=== PATIENT | male | born 1960 | race Two or more races ===

== ENCOUNTER 2023-03-18 07:08 | Outpatient (CLI) | payer OTHER | END 2023-03-18 07:11 | disposition home or self-care (01) | LOC: NUCLEAR 07:08 | PROVIDERS: ATTEND Urology | DX: I25.111 Atherosclerotic heart disease of native coronary artery with angina pectoris with documented spasm (principal) ==

== ENCOUNTER 2023-03-24 10:09 | Outpatient (CLI) | payer OTHER | END 2023-03-24 10:10 | disposition home or self-care (01) | LOC: NUCLEAR 10:09 | PROVIDERS: ATTEND Urology | DX: I65.1 Occlusion and stenosis of basilar artery (principal); I65.29 Occlusion and stenosis of unspecified carotid artery ==

== ENCOUNTER 2023-05-05 09:37 | Inpatient (IN) | payer OTHER ==
[~2023-05-05] VITALS: Ht 180.3 cm; Wt 86.2 kg
[2023-05-05 10:57] LABS: URINE APPEARANCE Clear; URINE BILIRRUBIN Negative (NEGATIVE); URINE BLOOD Negative; URINE COLOR Yellow; URINE GLUCOSE Negative (NEGATIVE); URINE LEUKOCYTE Negative; URINE NITRATE Negative; URINE PROTEIN Negative (NEGATIVE); URINE UROBILINOGEN 0.2 E.U./dl
[2023-05-05 11:09] LABS: HEMOGLOBIN 14.8 g/dL (13-16.00); MEAN CELL VOLUME 91.3 fL (80.0-100.00); MEAN CORPUSCULAR HEMOGLOBIN 31.4 pg (27.00-32.0); MEAN CORPUSCULAR HGB CONC 34.4 g/dl (32.0-36.0); PLATELET COUNT 229 K/uL (150-450); RED BLOOD COUNT 4.71 M/uL (4.00-6.00); RED CELL DISTRIBUTION WIDTH 13.3 % (11.5-14.5)
[2023-05-05 11:14] LABS: CALCIUM 9.5 mg/dL (8.5-10.1); CREATININE SERUM 0.93 mg/dL (0.70-1.30); GFR 82.33; POTASSIUM 4.84 mEq/L (3.5-5.1)
[2023-05-05 11:16] LABS: INR 0.98; PARTIAL THROMBOPLASTIN TIME 23.2 SECONDS (22.0-34.0); PROTHROMBIN TIME 10.3 SECONDS (9.0-11.5)
[2023-05-05 11:56] LABS: URINE EPITHELIAL CELLS 0.1 uL (0.0-38.8); URINE RBC 1.4 uL (0.0-20.8); URINE WBC 1.2 uL (0.0-23.2)
[2023-05-10 07:48] LABS: HEMATOCRIT 36.7 % (39.0-48.0); HEMOGLOBIN 12.8 g/dL (13-16.00); MEAN CELL VOLUME 92.2 fL (80.0-100.00); MEAN CORPUSCULAR HEMOGLOBIN 32.2 pg (27.00-32.0); MEAN CORPUSCULAR HGB CONC 34.9 g/dl (32.0-36.0); PLATELET COUNT 195 K/uL (150-450); RED BLOOD COUNT 3.98 M/uL (4.00-6.00); RED CELL DISTRIBUTION WIDTH 13.4 % (11.5-14.5)
[2023-05-10 08:25] LABS: CREATININE SERUM 0.88 mg/dL (0.70-1.30); GFR 87.75; POTASSIUM 3.9 mEq/L (3.5-5.1)
== END 2023-05-10 16:47 | disposition home or self-care (01) | DRG 708 ==
LOC: O/R 05-09 04:30 → SURH 05-09 07:00
PROVIDERS: ADMIT Urology; ATTEND Urology
PROC: 8E0W4CZ Robotic Assisted Procedure of Trunk Region, Percutaneous Endoscopic Approach (ICD-10-PCS; 2023-05-09)
PROC: 0VT04ZZ Resection of Prostate, Percutaneous Endoscopic Approach (ICD-10-PCS; principal; 2023-05-09 07:00)
DX: C61 Malignant neoplasm of prostate (principal); Z20.822 Contact with and (suspected) exposure to COVID-19